=== PATIENT | female | born 1945 | race Caucasian/White ===

== ENCOUNTER 2017-07-25 13:14 | Emergency (ER) | payer BC ==
[~2017-07-25] VITALS: Ht 160 cm; Wt 59.8 kg
[~2017-07-25 13:14] MED LIST: ANKLE BRACE XX; CIPRO500 MG OR; LORTAB 5/3255 MG PO; LORTAB 7.5 OR; NEXIUM40 M1 PO; PRILOSEC40 MG PO; STERAPRED DS10 MG PO; VENTOLIN HFA IN; XANAX0.5 MG PO
[2017-07-25] MEDS ORDERED: [UNRECOGNIZED DRUG - OTHER] (13:29)
[2017-07-25 14:14] LABS: INFLUENZA A NONE DETECTED (NONE DETECT); INFLUENZA B NONE DETECTED (NONE DETECT)
[2017-07-25] MEDS ORDERED: ZOFRAN4 M1 PO (14:28)
[2017-07-25] MEDS ORDERED: DOXYCYC MONO100 M2 PO (14:28)
[2017-07-25 14:29] VITALS: BP 118/68
== END 2017-07-25 14:30 | disposition home or self-care (01) | DRG 153 ==
LOC: ED 13:14
PROVIDERS: Family Medicine
DX: J06.9 Acute upper respiratory infection, unspecified (principal)

== ENCOUNTER 2017-09-18 10:00 | Emergency (ER) | payer BC ==
[~2017-09-18] VITALS: Ht 160 cm; Wt 80.0 kg
[~2017-09-18 10:00] MED LIST changes: +DOXYCYC MONO100 M2 PO; +ZOFRAN4 M1 PO; +[UNRECOGNIZED DRUG - OTHER]
[2017-09-18] MEDS ORDERED: FLOXIN OTIC0.3 % OD (10:36)
[2017-09-18 10:51] VITALS: BP 148/70
== END 2017-09-18 10:51 | disposition home or self-care (01) | DRG 125 ==
LOC: ED 10:00
DX: H10.9 Unspecified conjunctivitis (principal); Z85.3 Personal history of malignant neoplasm of breast

== ENCOUNTER 2019-04-05 10:45 | Emergency (ER) | payer BC ==
[~2019-04-05] VITALS: Ht 160 cm; Wt 61.0 kg
[~2019-04-05 10:45] MED LIST changes: +FLOXIN OTIC0.3 % OD
[2019-04-05 11:31] LABS: HEMATOCRIT 39.5 % (37.0-47.0); HEMOGLOBIN 12.6 g/dl (12.0-16.0); IMMATURE GRANULOCYTES 0.2 % (0.0-5.0); MEAN CELL VOLUME 91.2 fL CALC (80.0-100.0); MEAN CORPUSCULAR HGB 29.1 pG CALC (26.0-32.0); MEAN CORPUSCULAR HGB CONC 31.9 g/L CALC (32.0-36.0); NEUT# 3.78 thou/uL (2.00-7.15); RED BLOOD COUNT 4.33 mill/uL (4.20-5.60); RED CELL DISTRI WIDTH 13.1 % (11.5-15.5)
[2019-04-05] MEDS ORDERED: TRAZODONE50 MG PO (11:36)
[2019-04-05 11:42] LABS: ALBUMIN 4.6 g/dL (3.2-5.0); ALKALINE PHOSPHATASE 83 u/l (38-126); ANION GAP 15 (6-22 (CALC)); BILIRUBIN, TOTAL 0.7 mg/dL (0.0-1.4); BUN 11 mg/dL (8-23); BUN/CREATININE RATIO 20 (12-20 (CALC)); CARBON DIOXIDE 26 mmol/l (22-30); CHLORIDE 104 mmol/l (95-108); CREATININE 0.6 mg/dL (0.5-1.0); GFR > 60 ML/MIN (>=60 (CALC)); GFR FOR AFR.AMER. > 60 ML/MIN (>=60 (CALC)); POTASSIUM 4.2 mmol/l (3.5-5.1); SGOT/AST 31 u/l (9-36); SODIUM 141 mmol/l (137-146); TOTAL PROTEIN 7.3 g/dL (6.3-8.2)
[2019-04-05 11:53] LABS: MYOGLOBIN 35 ng/mL (0 - 62)
[2019-04-05 12:31] LABS: URINE BILIRUBIN - DIPSTICK NEGATIVE (NEGATIVE); URINE BLOOD DIPSTICK NEGATIVE (NEGATIVE); URINE COLOR YELLOW; URINE GLUCOSE - DIPSTICK NEGATIVE (NEGATIVE); URINE KETONE TRACE mg/dL (NEGATIVE); URINE LEUK ESTERASE NEGATIVE (NEGATIVE); URINE NITRITE - DIPSTICK NEGATIVE (Negative); URINE PROTEIN - DIPSTICK NEGATIVE (NEG-TRACE); URINE UROBILINOGEN - DIPSTICK 0.2 E.U./dL (0.2)
[2019-04-05 14:50] VITALS: BP 143/72
== END 2019-04-05 14:50 | disposition home or self-care (01) | DRG 313 ==
LOC: ED 10:45
PROVIDERS: Emergency Medicine
DX: R07.89 Other chest pain (principal); F41.9 Anxiety disorder, unspecified

== ENCOUNTER 2019-06-06 23:31 | Emergency (ER) | payer BC ==
[~2019-06-06] VITALS: Ht 160 cm; Wt 59.0 kg
[~2019-06-06 23:31] MED LIST changes: +TRAZODONE50 MG PO
[2019-06-07] MEDS ORDERED: FLEXERIL PO (00:24)
[2019-06-07] MEDS ORDERED: ULTRAM50 M1 PO (00:24)
[2019-06-07] MEDS ORDERED: MEDDOSEPAK PO (00:24)
[2019-06-07 00:47] VITALS: BP 138/76
== END 2019-06-07 00:47 | disposition home or self-care (01) | DRG 552 ==
LOC: ED 23:31
DX: M54.42 Lumbago with sciatica, left side (principal)

== ENCOUNTER 2024-03-22 20:29 | Emergency (ER) | payer MEDICARE, BC ==
[~2024-03-22] VITALS: Ht 160 cm; Wt 63.0 kg
[~2024-03-22 20:29] MED LIST changes: +FLEXERIL PO; +MEDDOSEPAK PO; +ULTRAM50 M1 PO
[2024-03-22] MEDS ORDERED: BENZONATATE 200 MG/CAP PO ONE (20:55)
[2024-03-22] MEDS ORDERED: TUSSI-PRE2 PO (23:53)
[2024-03-22] MEDS ORDERED: [UNRECOGNIZED DRUG - OTHER] PO (23:56)
[2024-03-22] MEDS ORDERED: PREDNISONE20 MG PO (23:56)
[2024-03-22] MEDS ORDERED: BENZONATATE200 MG PO (23:56)
[2024-03-23 00:03] VITALS: BP 156/77
[2024-03-23] MEDS ORDERED: HYDROcodone POLISTIREX/CHLORPH 5 ML UDC PO ONE (23:55)
== END 2024-03-23 00:35 | disposition home or self-care (01) ==
LOC: ED 20:29
DX: J40 Bronchitis, not specified as acute or chronic (principal)